=== PATIENT | male | born 2000 | race Caucasian/White ===

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

== ENCOUNTER 2019-09-14 22:07 | Inpatient (IN) | payer OTHER ==
[~2019-09-14] VITALS: Ht 180.3 cm; Wt 60.0 kg
[~2019-09-14 22:07] MED LIST changes: +HYDR1TAB33 PO; -HYDRO50TAB PO; +MOBI4TAB PO; +PRED20TA PO; +ZANA4TAB PO
[2019-09-14 23:24] LABS: AMPHETAMINES LEVEL URINE NEGATIVE (NEGATIVE); BARBITURATES URINE NEGATIVE (NEGATIVE); BENZODIAZEPINES URINE NEGATIVE (NEGATIVE); CANNABINOIDS URINE NEGATIVE (NEGATIVE); COCAINE METABOLITE URINE NEGATIVE (NEGATIVE); METHADONE URINE NEGATIVE (NEGATIVE); OPIATES URINE NEGATIVE (NEGATIVE); PHENCYCLIDINE URINE NEGATIVE (NEGATIVE)
[2019-09-14 23:34] LABS: HEMATOCRIT 43.1 % (42.0-52.0); HEMOGLOBIN 14.6 g/dl (13.5-17.5); MEAN CORPUSCULAR HGB CONC 33.9 g/dl (32.0-36.5); MEAN CORPUSCULAR VOLUME 85.7 fl (80.0-96.0); PLATELET COUNT, AUTOMATED 302 10^3/uL (150-450); RED BLOOD COUNT 5.03 10^6/uL (4.30-6.10); WHITE BLOOD COUNT 8.3 10^3/uL (4.0-10.0)
[2019-09-15 00:16] LABS: ALBUMIN 4.4 GM/DL (3.2-5.2); ALT/SGPT 20 U/L (12-78); BILIRUBIN,DIRECT 0.1 MG/DL (0.0-0.2); BILIRUBIN,TOTAL 0.4 MG/DL (0.2-1.0); BLOOD UREA NITROGEN 9 MG/DL (7-18); CARBON DIOXIDE LEVEL 28 MEQ/L (21-32); CHLORIDE LEVEL 104 MEQ/L (98-107); CREATININE FOR GFR 0.99 MG/DL (0.70-1.30); ETHYL ALCOHOL (ETHANOL) < 0.003 % (0.000-0.010); GLUCOSE, FASTING 73 MG/DL (70-100); POTASSIUM SERUM 4.4 MEQ/L (3.5-5.1); SALICYLATE LEVEL < 1.7 MG/DL (5.0-30.0); SODIUM LEVEL 140 MEQ/L (136-145); TOTAL PROTEIN 7.6 GM/DL (6.4-8.2)
[2019-09-15 00:17] LABS: ACETAMINOPHEN LEVEL < 2.0 UG/ML (10.0-30.0)
--- NOTE | 2019-09-15 06:19 | ECGEPIP ---
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
[2019-09-15] MEDS ORDERED: ACETAMINOPHEN TAB 650MG DOSE (2X325MG) PO PRN (13:00)
[2019-09-15] MEDS ORDERED: OLANZapine 5 MG TAB PO PRN (13:00)
[2019-09-15] MEDS ORDERED: diphenhydrAMINE 25 MG CAP PO PRN (13:00)
[2019-09-15] MEDS ORDERED: traZODone 50 MG TAB PO PRN (13:00)
[2019-09-15] MEDS ORDERED: MAALOX 30 ML SUSP *UDC PO PRN (13:00)
[2019-09-15] MEDS ORDERED: MOM 30ML SUSPENSION UDC PO PRN (13:00)
[2019-09-16 07:05] VITALS: BP 114/61
--- NOTE | 2019-09-16 09:49 | MHHPEPDOC ---
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 He is seen in the ER and admitted out of an abundance of caution. When he has met with he reports having suicidal thoughts with no particular plan. When he had presented he reports having no previous episodes and no self- harm. He reports having fatigue, loss of interest, low mood and normal eating and sleeping. He reports no significant anxiety. He reports several adjustments to the since moving here to [place]. He had previously been in unit several months ago. Review Of Systems Depression: As above. Anxiety: The patient denies any excessive worry associated with physical symptoms. They deny any experience of discreet panic in the past. Peg: The patient denies any episodes of euphoria/dysphoria associated with decreased need for sleep, hedonism, talkatively or impulsivity lasting longer than 5 days. Psychotic: The patient denies any experiences of auditory or visual hallucinations. They deny any episodes of paranoia or delusional thinking in the past Trauma: The patient denies any traumatic events associated with nightmares or intrusive thoughts. Borderline: The patient screens negative for borderline personality at this junction. Past Psychiatric History Has reported diagnosis of depression, sees [facility]. Reports trying sertraline and Abilify with moderate to no results previously, on no current medication. No history of suicide attempts. Allergies Please see below. Family Psychiatric History The patient denies/is unaware any history of mental health history including addictions and suicide. 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 He had been removed from mother's care at 13, unclear why, placed into Foster care until 16 and then was legally adopted by another couple who he has good relations with. He has 2 older sisters who he has also good relationship with. He has been in the for 2 years with no pending legal problems or genitive action against him. Substance Abuse History The patient denies any excessive alcohol use, tobacco or illicit drug use, denies history of substance use treatment. Medical History Patient has no significant past medical history. Mental Status Examination General: Well dressed with good hygiene Speech: Spontaneous and fluid Thought processes: Linear and logical MSK: Smooth and coordinated gait, no signs of tremors or involuntary orofacial movements Thought content: Future orientated Abstract reasoning, and computation: Intact Description of associations: Intact Description of abnormal or psychotic thoughts: Denies any suicidal or homicidal ideation. Denies any auditory or visual hallucinations. Does not appear to be responding to internal stimuli. Does not appear to be endorsing any bizarre or paranoid ideation. Judgment: fair Insight: fair Orientation: Alert and orientated 3 Cognition: Grossly normal Recent and remote memory: Intact Attention span and concentration: Intact Fund of knowledge: Adequate Mood: "okay" Affect: Mildly anxious Diagnoses Unspecified depressive disorder . Adjustment disorder versus MDD. Assessment and Plan Unspecified depressive disorder: Start Wellbutrin 150 mg daily extended release. Discussed risks, benefits, potential side effects with patient. Disposition The patient will be continued on a 9.13 legal status as he wishes to stay for further treatment. Does not meet involuntary criterias. No longer suicidal or homicidal. The patient will be assessed and triaged back to the as appropriate. Problem List 1. Risk for suicide. 2. Depression. 3. Ineffective coping. Initial Treatment Plan 1. Patient was admitted on a 9.39 legal status. 2. Complete history was obtained. 3. With patients permission, family will be contacted and database will be expanded. 4. Patients medication regimen will be reviewed and changed accordingly. 5. Patient will be provided with protected environment. 6. Patient will be treated with individual, group, and milieu therapies. 7. Patient will receive supportive psych-education. 8. Discharge planning will commence immediately. 9. Outpatient follow-up treatment will be strongly recommended. 10. The initial treatment plan will focus initially on: Estimated Length Of Stay 3 days. Time Spent 70 minutes. Sunday Vital Signs Vital Signs Date Time Temp Pulse Resp B/P (MAP) Pulse Ox O2 Delivery O2 Flow Rate FiO2 09/16/19 07:05 98.2 50 12 114/61 (78) 09/15/19 13:29 98 Room Air Medications No Active Prescriptions or Reported Meds Allergies Coded Allergies: No Known Allergies (Unverified , 11/26/18) NICKIE ASHLEY DO Sep 16, 2019 09:49
[2019-09-16] MEDS: buPROPion **XL** TABLET 150MG (WELLBUTRIN XL) PO SCH (14:36)
[2019-09-16 15:46] VITALS: BP 125/76
[2019-09-17 06:41] VITALS: BP 110/70
[2019-09-17] MEDS: buPROPion **XL** TABLET 150MG (WELLBUTRIN XL) PO SCH (08:01)
--- NOTE | 2019-09-17 08:07 | MHIPNPDOC ---
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 He is seen in the ER and admitted out of an abundance of caution. When he has met with he reports having suicidal thoughts with no particular plan. When he had presented he reports having no previous episodes and no self- harm. He reports having fatigue, loss of interest, low mood and normal eating and sleeping. He reports no significant anxiety. He reports several adjustments to the since moving here to [place]. He had previously been in unit several months ago. Interval History The patient is met with today. He reports he is doing much better. His depression has improved on the Wellbutrin. He has been doing better with better sleep, mood and motivation. He reports that he has been attending groups, engaged well. Nursing staff note no behavioral problems. Discussed with patient about the holiday and [place] being closed, the patient stated that he would like to go tomorrow to avoid being kept here over the long weekend. Review Of Systems General: Denies fever or appetite changes Cardiovascular: Denies Chest pain or palpations GI: Denies Nausea, vomiting, or bowel changes Respiratory: Denies shortness of breath or cough Neuro: Denies dizziness, tremors Derm: Denies any rashes or pruritus : Denies any dysuria or urinary problems MSK: Denies any muscle tightness or stiffness HEENT: Denies any vision changes or headaches Psychotherapy None on this visit. Vital Signs Reviewed. Mental Status Examination General: Well dressed with good hygiene Speech: Spontaneous and fluid Thought processes: Linear and logical MSK: Smooth and coordinated gait, no signs of tremors or involuntary orofacial movements Thought content: Future orientated Abstract reasoning, and computation: Intact Description of associations: Intact Description of abnormal or psychotic thoughts: Denies any suicidal or homicidal ideation. Denies any auditory or visual hallucinations. Does not appear to be responding to internal stimuli. Does not appear to be endorsing any bizarre or paranoid ideation. Judgment: fair Insight: fair Orientation: Alert and orientated 3 Cognition: Grossly normal Recent and remote memory: Intact Attention span and concentration: Intact Fund of knowledge: Adequate Mood: "okay" Affect: Euthymic with a full range Diagnoses Unspecified depressive disorder . Adjustment disorder versus MDD. Assessment and Plan Unspecified depressive disorder: Continue Wellbutrin 150 mg daily. Disposition Discharge tomorrow. Time Spent 15 minutes. Sunday Vital Signs Vital Signs Date Time Temp Pulse Resp B/P (MAP) Pulse Ox O2 Delivery O2 Flow Rate FiO2 09/17/19 06:41 97.4 60 14 110/70 (83) 09/15/19 13:29 98 Room Air Current Medications Current Medications Medications (Trade) Dose Ordered Sig/[place] Route PRN Reason Start Time Stop Time Status Last Admin Dose Admin Acetaminophen (Tylenol Tab) 650 mg Q6HP PRN PO HEADACHE or DISCOMFORT 09/15/19 13:00 Al Hydrox/Mg Hydrox/Simethicone (Mylanta) 30 ml Q4HP PRN PO HEARTBURN/INDIGESTION 09/15/19 13:00 Bupropion HCl (Wellbutrin Xl) 150 mg DAILY PO 09/16/19 09:00 09/17/19 08:01 Diphenhydramine HCl (Benadryl) 25 mg Q6HP PRN PO ANXIETY/AGITATION 09/15/19 13:00 Home Med (Med Rec Complete!) ASDIRECTED XX 09/15/19 06:00 09/15/19 06:08 DC Magnesium Hydroxide (Milk Of Magnesia) 30 ml DAILYPRN PRN PO CONSTIPATION 09/15/19 13:00 Olanzapine (ZyPREXA) 5 mg Q4HP PRN PO AGITATION 09/15/19 13:00 Trazodone HCl (Desyrel) 50 mg QHSP PRN PO INSOMNIA 09/15/19 13:00 Allergies Coded Allergies: No Known Allergies (Unverified , 11/26/18) NICKIE ASHLEY DO Sep 17, 2019 08:07
[2019-09-17 17:21] VITALS: BP 115/65
[2019-09-18 06:06] VITALS: BP 117/70
--- NOTE | 2019-09-18 08:15 | MHDSPDOC ---
[facility] Discharge Summary Discharge Summary DATE OF ADMISSION: Sep 15, 2019 at 12:58 DATE OF DISCHARGE: 09/18/19 Discharge Sergio Patrick MRN: N/A Date of : N/A Date of Service: 09/18/2019 Diagnoses Unspecified depressive disorder . Adjustment disorder versus MDD. 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 He is seen in the ER and admitted out of an abundance of caution. When he has met with he reports having suicidal thoughts with no particular plan. When he had presented he reports having no previous episodes and no self- harm. He reports having fatigue, loss of interest, low mood and normal eating and sleeping. He reports no significant anxiety. He reports several adjustments to the since moving here to [place]. He had previously been in unit several months ago. Consultants Involved Hospitalist/PCP screening Treatment and Progress On The Unit The patient was admitted to the inpatient mental health unit where he was subsequently started on Wellbutrin 150 mg daily extended release. He had not been compliant with sertraline or Abilify as an outpatient. He did well, he is friendly, amenable. Had been denying suicidal and homicidal ideation through his stay and was converted to voluntary status. The patient subsequently attended groups well, participated and eventually was discharged. 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 He does well on low dose of Wellbutrin and the supportive environment. On the day of discharge, he does not meet involuntary criteria as he has a normal mental status exam, is currently on a voluntary admission. He denies suicidal or homicidal ideation now and through his admission. He is cooperative, friendly, pleasant and engaged in his treatment. He declines further voluntary admission and is discharged in good natalee. Mental Status Examination General: Well dressed with good hygiene Speech: Spontaneous and fluid Thought processes: Linear and logical MSK: Smooth and coordinated gait, no signs of tremors or involuntary orofacial movements Thought content: Future orientated Abstract reasoning, and computation: Intact Description of associations: Intact Description of abnormal or psychotic thoughts: Denies any suicidal or homicidal ideation. Denies any auditory or visual hallucinations. Does not appear to be responding to internal stimuli. Does not appear to be endorsing any bizarre or paranoid ideation. Judgment: fair Insight: fair Orientation: Alert and orientated 3 Cognition: Grossly normal Recent and remote memory: Intact Attention span and concentration: Intact Fund of knowledge: Adequate Mood: "okay" Affect: Euthymic with a full range Follow Up The social work team worked during the predischarge meeting in order to evaluate for further issues of lethality address them fully before discharge. They worked on safety planning with the patient's family members in order to ensure that the patient will have a safe and effective discharge. Time Spent The amount of time spent in the coordination of care for this patient was approximately 60 minutes. Vital Signs/I&Os Vital Signs Date Time Temp Pulse Resp B/P (MAP) Pulse Ox O2 Delivery O2 Flow Rate FiO2 09/18/19 06:06 97.3 52 14 117/70 (86) 09/15/19 13:29 98 Room Air Medications Scheduled Bupropion Hcl (Bupropion Xl) 150 Mg Tab.er.24h, 150 MG PO DAILY for mood for 7 Days, #7 Allergies Coded Allergies: No Known Allergies (Unverified , 11/26/18) NICKIE ASHLEY DO Sep 18, 2019 08:15
[2019-09-18] MEDS ORDERED: BUPR150T3 PO (08:17)
[2019-09-18] MEDS: buPROPion **XL** TABLET 150MG (WELLBUTRIN XL) PO SCH (08:44)
== END 2019-09-18 11:20 | disposition home or self-care (01) | DRG 881 ==
LOC: M ED 22:07 → M ED INP 09-15 12:58 → M PSY 09-15 15:38
PROVIDERS: ADMIT Psychiatry & Neurology Addiction Medicine; ATTEND Psychiatry & Neurology Addiction Medicine
DX: F32.9 Major depressive disorder, single episode, unspecified (principal)